=== PATIENT | male | born 1945 | race Caucasian/White ===

== ENCOUNTER 2017-04-10 16:54 | Inpatient (IN) | payer MEDICARE, OTHER ==
[2017-04-10 17:06] VITALS: BMI 27.1
[2017-04-10] MEDS ORDERED: Sodium Chloride 0.9% 1,000 ML IV STA (17:37)
[2017-04-10 17:54] LABS: BASO # 0.1 K/uL (0.0-0.2); BASO % 0.6 % (0.0-2.0); EOS # 0.4 K/uL (0.0-0.7); EOS % 3.1 % (0.0-4.0); HEMOGLOBIN 13.9 g/dL (12.0-18.0); LYMPH # 1.6 K/uL (1.0-4.3); LYMPH % 13.1 % (20.0-40.0); MEAN CELL VOLUME 90.8 fl (80.0-94.0); MEAN CORPUSCULAR HEMOGLOBIN 30.1 pg (27.0-31.0); MEAN CORPUSCULAR HGB CONC 33.1 g/dL (33.0-37.0); MEAN PLATELET VOLUME 5.9 fl (7.2-11.7); MONO # 0.8 K/uL (0.0-0.8); MONO % 6.3 % (0.0-10.0); NEUT # 9.6 K/uL (1.8-7.0); NEUT % 76.9 % (50.0-75.0); RBC 4.64 Mil/uL (4.40-5.90); RED CELL DISTRIBUTION WIDTH 13.1 % (11.5-14.5); WHITE BLOOD COUNT 12.5 K/uL (4.8-10.8)
[2017-04-10 18:22] LABS: CALCIUM 9.8 mg/dL (8.4-10.2); GFR AFRICAN-AMERICAN > 60; GFR NON-AFRICAN AMERICAN > 60
[2017-04-10 18:23] LABS: ALB/GLOB RATIO 1.3 (1.0-2.1); ALBUMIN 4.8 g/dL (3.5-5.0); ALT/SGPT 51 U/L (21-72); AST/SGOT 47 U/L (17-59); BLOOD UREA NITROGEN 13 mg/dl (9-20)
--- NOTE | 2017-04-10 18:46 | ED PDOC ---
HPI: CCC, URI, Sore Throat Time Seen by Provider: 04/10/17 17:27 Chief Complaint (Nursing): Chest Pain Chief Complaint (Provider): cough History Per: Patient History/Exam Limitations: no limitations Onset/Duration Of Symptoms: Days (x2) Current Symptoms Are (Timing): Still Present Additional Complaint(s): 71 year old male with medical history of hypertension and hypercholesterolemia, who presents to the emergency department with a complaint of flu-like symptoms including cough, congestion, runny nose, sore throat, generalized bodyaches, malaise and headache ongoing for 2 days. Denied any vomiting, diarrhea or shortness of breath. PMD: Giovanny Elam MD Past Medical History Reviewed: Historical Data, Nursing Documentation, Vital Signs Vital Signs: Last Vital Signs Temp 99.0 F 04/10/17 17:04 Pulse 85 04/10/17 17:04 Resp 16 04/10/17 17:04 BP 163/78 H 04/10/17 17:04 Pulse Ox 98 04/10/17 19:06 - Medical History PMH: Back Problems, HTN - Surgical History Surgical History: Appendectomy, Back Surgery, Tonsillectomy - Family History Family History: States: Unknown Family Hx - Social History Current smoker - smoking cessation education provided: No Alcohol: None Drugs: Denies - Home Medications Home Medications: Ambulatory Orders Medication Instructions Recorded oxyCODONE/Acetaminophen [Percocet 1 ea PO Q6H PRN #15 tab 03/16/16 5/325 mg Tab] Ibuprofen [Motrin Tab] 600 mg PO Q6 PRN #15 tab 04/10/17 Oseltamivir [Tamiflu] 75 mg PO BID #10 cap 04/10/17 - Allergies Allergies/Adverse Reactions: Allergies Allergy/AdvReac Type Severity Reaction Status Date / Time No Known Allergies Allergy Verified 04/10/17 17:23 Review of Systems ROS Statement: Except As Marked, All Systems Reviewed And Found Negative Constitutional: Positive for: Malaise, Other (generalized bodyaches) ENT: Positive for: Nose Discharge, Nose Congestion, Throat Pain Respiratory: Positive for: Cough. Negative for: Shortness of Breath Gastrointestinal: Negative for: Vomiting, Diarrhea Neurological: Positive for: Headache Physical Exam - Reviewed Nursing Documentation Reviewed: Yes Vital Signs Reviewed: Yes - Physical Exam Appears: Positive for: Non-toxic, Uncomfortable ENT: Positive for: Pharyngeal Erythema. Negative for: Normal ENT Inspection, Tonsillar Exudate Cardiovascular/Chest: Positive for: Regular Rate, Rhythm, Chest Non Tender Respiratory: Positive for: Decreased Breath Sounds (coarse). Negative for: Normal Breath Sounds, Respiratory Distress Gastrointestinal/Abdominal: Positive for: Normal Exam, Soft. Negative for: Tenderness Neurologic/Psych: Positive for: Alert, Oriented - Laboratory Results Result Diagrams: 04/10/17 17:35 04/10/17 17:35 - ECG O2 Sat by Pulse Oximetry: 98 (RA) Pulse Ox Interpretation: Normal Medical Decision Making Medical Decision Making: Initial Impression: Flu-like symptoms Initial Plan: * EKG * CMP * Troponin I * CBC * CXR * NS 1,000ml IV per 1,000mls/hr * Toradol 30mg IV * Influenza A B Time: 1727 --CXR: Interpreted by provider. Negative for active disease. Time: 1735 --Flu swab: positive for influenza A. Time: 1845 Tamiflu 75mg initiated. Pt remains unwell appearing, diminised BS b/l, dyspnea w ambulation. D/w Dr Elam, poss hx COPD, will keep med surg obs for flu pneumonitits Clinical Impression: Influenza Scribe Attestation: Documented by Abbey Small, acting as a scribe for Bunny Olivia III, DO. Provider Scribe Attestation: All medical record entries made by the Scribe were at my direction and personally dictated by me. I have reviewed the chart and agree that the record accurately reflects my personal performance of the history, physical exam, medical decision making, and the department course for this patient. I have also personally directed, reviewed, and agree with the discharge instructions and disposition. Disposition - Clinical Impression Clinical Impression: Influenza A, Influenza - Patient ED Disposition Is Patient to be Admitted: Yes Discussed With Dr.: Giovanny Elam Doctor Will See Patient In The: Hospital Counseled Patient/Family Regarding: Studies Performed, Diagnosis, Rx Given - Disposition Referrals: Giovanny Elam MD [Staff Provider] - Disposition Time: 18:45 Condition: STABLE Additional Instructions: Avoid close contact with others for 7 days. Take medication as directed. Return to ER for any worse or new symptoms. Prescriptions: Ibuprofen [Motrin Tab] 600 mg PO Q6 PRN #15 tab PRN Reason: Pain, Moderate (4-7) Oseltamivir [Tamiflu] 75 mg PO BID #10 cap Instructions: Influenza (ED) Forms: [facility] (Ecuadorean) - Pt Status Changed To: Hospital Disposition Of: Observation
[2017-04-10] MEDS ORDERED: Albuterol-Ipratrop 3 mg / 0.5 (3 ml) UD INH STA (19:02)
[2017-04-10] MEDS: oxyCODONE 10 mg Immediate Release Tab PO PRN (23:52)
[2017-04-11] MEDS ORDERED: Albuterol-Ipratrop 3 mg / 0.5 (3 ml) UD ONE ×3 (08:28→17:11)
[2017-04-11] MEDS: Albuterol-Ipratrop 3 mg / 0.5 (3 ml) UD INH SCH ×4 (08:28→20:12)
--- NOTE | 2017-04-11 10:02 | RAD ---
HISTORY: cough COMPARISON: No prior. TECHNIQUE: Chest PA and lateral FINDINGS: LUNGS: Prominence of the bilateral interstitial markings, likely chronic. Thickening of the minor fissure. No focal consolidation. PLEURA: No significant pleural effusion identified. No pneumothorax apparent. CARDIOVASCULAR: Atherosclerotic aortic calcifications. Cardiomediastinal silhouette within normal limits. OSSEOUS STRUCTURES: Anterior cervical fixation plate. Degenerative changes. VISUALIZED UPPER ABDOMEN: Normal. OTHER FINDINGS: None. IMPRESSION: No active disease.
[2017-04-11] MEDS: oxyCODONE 10 mg Immediate Release Tab PO PRN (10:39)
--- NOTE | 2017-04-11 11:24 | CARD ---
APPROVED REPORT EKG Measurement Heart [id number] <Conclusion> Sinus rhythm with 1st degree AV block Minimal voltage criteria for LVH, may be normal variant Borderline ECG
--- NOTE | 2017-04-11 11:52 | CP.PCM.HP ---
<Christianne James - Last Filed: 04/11/17 12:01> History of Present Illness - History of Present Illness History of Present Illness: 71 YO M w/ PMH of HTN, hypercholesterolemia presents for 2 days of cough, body aches, congested runny nose and sore throat . Has been having subjective fevers. Denies any nausea, vomiting or diarrhea. He is complaining of a headache 6/10. Denies any chest pain, palpitations, N/V. Present on Admission - Present on Admission Any Indicators Present on Admission: No Past Patient History - Infectious Disease Hx of Infectious Diseases: None - Past Social History Alcohol: None Drugs: Denies - CARDIAC Hx Hypertension: Yes - PULMONARY Hx Respiratory Disorders: No - MUSCULOSKELETAL/RHEUMATOLOGICAL Hx Musculoskeletal Disorders: Yes - PSYCHIATRIC Hx Psychophysiologic Disorder: No Hx Substance Use: No - SURGICAL HISTORY Hx Appendectomy: Yes Hx Tonsillectomy: Yes - ANESTHESIA Hx Anesthesia: Yes Hx Anesthesia Reactions: No Meds Home Medications: Home Medication List Medication Instructions Recorded Confirmed Type Ibuprofen [Motrin Tab] 600 mg PO Q6 PRN #15 tab 04/10/17 Rx Oseltamivir [Tamiflu] 75 mg PO BID #10 cap 04/10/17 Rx Allergies/Adverse Reactions: Allergies Allergy/AdvReac Type Severity Reaction Status Date / Time No Known Allergies Allergy Verified 04/10/17 17:23 Physical Exam - Constitutional Appears: No Acute Distress - Head Exam Head Exam: NORMAL INSPECTION - Respiratory Exam Respiratory Exam: Clear to Auscultation Bilateral, NORMAL BREATHING PATTERN. absent: Rhonchi, Wheezes - Cardiovascular Exam Cardiovascular Exam: REGULAR RHYTHM, +S1, +S2 - Extremities Exam Extremities exam: Positive for: normal inspection. Negative for: calf tenderness - Neurological Exam Neurological exam: Alert, CN II-XII Intact, Oriented x3, Reflexes Normal - Skin Skin Exam: Normal Color, Warm Results - Vital Signs Recent Vital Signs: Last Vital Signs Temp 98.4 F 04/11/17 11:14 Pulse 67 04/11/17 11:14 Resp 16 04/11/17 11:14 BP 116/69 04/11/17 11:14 Pulse Ox 100 04/11/17 11:14 - Labs Result Diagrams: 04/10/17 17:35 04/10/17 17:35 Labs: Laboratory Results - last 24 hr 04/10/17 04/10/17 04/10/17 17:35 17:35 17:35 WBC 12.5 H RBC 4.64 Hgb 13.9 Hct 42.1 MCV 90.8 MCH 30.1 MCHC 33.1 RDW 13.1 Plt Count 192 MPV 5.9 L Neut % (Auto) 76.9 H Lymph % (Auto) 13.1 L [place] % (Auto) 6.3 Eos % (Auto) 3.1 Baso % (Auto) 0.6 Neut # (Auto) 9.6 H Lymph # (Auto) 1.6 [place] # (Auto) 0.8 Eos # (Auto) 0.4 Baso # (Auto) 0.1 Sodium 142 Potassium 4.8 Chloride 103 Carbon Dioxide 28 Anion Gap 16 BUN 13 Creatinine 0.8 Est GFR ( Amer) > 60 Est GFR (Non-Af Amer) > 60 Random Glucose 115 H Calcium 9.8 Total Bilirubin 0.9 AST 47 ALT 51 Alkaline Phosphatase 68 Troponin I < 0.0120 Total Protein 8.3 H Albumin 4.8 Globulin 3.5 Albumin/Globulin Ratio 1.3 Influenza Typ A,B (EIA) Pos for influenza a H Assessment & Plan - Assessment and Plan (Free Text) Assessment: 1) Influenza positive - Continue with tamiflu 75 BID - Fever controll - Patient will be kept for observation and tentatively discharged tomorrow 2. Chronic low back pain - Pain controlled with medication 3. DVT prophylaxis - Lovenox <Giovanny Elam - Last Filed: 04/13/17 11:25> Results - Vital Signs Recent Vital Signs: Last Vital Signs Temp 98.3 F 04/13/17 08:01 Pulse 66 04/13/17 08:01 Resp 20 04/13/17 08:01 BP 163/90 H 04/13/17 08:01 Pulse Ox 95 04/13/17 08:01 - Labs Result Diagrams: 04/10/17 17:35 04/10/17 17:35 Assessment & Plan - Assessment and Plan (Free Text) Plan: I was present during the evaluation and discussed with Dr James re plans of care and tx. Giovanny Elam M.D.
[2017-04-12] MEDS: oxyCODONE 10 mg Immediate Release Tab PO PRN ×2 (07:50→20:07)
[2017-04-12] MEDS: Albuterol-Ipratrop 3 mg / 0.5 (3 ml) UD INH SCH ×4 (08:23→19:01)
[2017-04-12 08:38] VITALS: RESP 20
[2017-04-12] MEDS: Enoxaparin 40 mg Syringe SC SCH (10:39)
[2017-04-12] MEDS: guaiFENesin DM 200 mg-20 mg/10 ml UD PO PRN ×2 (10:39→15:29)
[2017-04-13] MEDS: guaiFENesin DM 200 mg-20 mg/10 ml UD PO PRN ×2 (00:03→08:36)
[2017-04-13 08:01] VITALS: BP 163/90; PULSE 66; TEMP 98.3; O2SAT 95
[2017-04-13] MEDS: Enoxaparin 40 mg Syringe SC SCH (08:36)
[2017-04-13] MEDS: Albuterol-Ipratrop 3 mg / 0.5 (3 ml) UD INH SCH ×2 (08:56→11:27)
[2017-04-13] MEDS: oxyCODONE 10 mg Immediate Release Tab PO PRN (10:23)
--- NOTE | 2017-04-13 11:27 | CP.PCM.PN ---
Subjective - Date & Time of Evaluation Date of Evaluation: 04/12/17 Time of Evaluation: 10:30 - Subjective Subjective: Patient feels veryweak Has hoarseness of voice Has low grade fever Still with a lot of joint pains and muscle pains. On his 2nd day of Tamiflu. Objective - Vital Signs/Intake and Output Vital Signs (last 24 hours): Temp Pulse Resp BP Pulse Ox 98.3 F 66 20 163/90 H 95 04/13/17 08:01 04/13/17 08:01 04/13/17 08:01 04/13/17 08:01 04/13/17 08:01 - Medications Medications: Current Medications Albuterol/Ipratropium (Duoneb 3 Mg/0.5 Mg (3 Ml) Ud) 3 ml INH RQID [facility] Last Admin: 04/13/17 08:56 Dose: 3 ml Enoxaparin Sodium (Lovenox) 40 mg SC DAILY [facility] PRN Reason: Protocol Last Admin: 04/13/17 08:36 Dose: 40 mg Guaifenesin/Dextromethorphan (Robitussin Dm) 10 ml PO Q6 PRN PRN Reason: Cough Last Admin: 04/13/17 08:36 Dose: 10 ml Ibuprofen (Motrin Tab) 600 mg PO Q8 PRN PRN Reason: Pain (1-5), fever Last Admin: 04/12/17 13:18 Dose: 600 mg Ibuprofen (Motrin Tab) 800 mg PO Q8 PRN PRN Reason: Pain, moderate (4-7) Last Admin: 04/13/17 06:37 Dose: 800 mg Oseltamivir Phosphate (Tamiflu Cap) 75 mg PO BID [facility] PRN Reason: Protocol Last Admin: 04/13/17 08:36 Dose: 75 mg Oxycodone HCl (Oxycodone Immediate Release Tab) 10 mg PO Q6 PRN PRN Reason: Pain, severe (8-10) Last Admin: 04/13/17 10:23 Dose: 10 mg - Labs Labs: 04/10/17 17:35 04/10/17 17:35 - Head Exam Head Exam: NORMAL INSPECTION - Eye Exam Eye Exam: Normal appearance - ENT Exam ENT Exam: Mucous Membranes Moist - Respiratory Exam Respiratory Exam: Clear to Ausculation Bilateral - Cardiovascular Exam Cardiovascular Exam: REGULAR RHYTHM - GI/Abdominal Exam GI & Abdominal Exam: Normal Bowel Sounds - Neurological Exam Neurological Exam: Awake, Oriented x3 - Psychiatric Exam Psychiatric exam: Normal Mood Assessment and Plan (1) Influenza A Status: Acute (2) Chronic back pain Status: Acute - Assessment and Plan (Free Text) Plan: Cont meds Cont Tamiflu high dose Ibuprofen Increase fluids IV fluids. isolation.
--- NOTE | 2017-04-13 11:31 | CP.PCM.DIS ---
Provider - Provider Date of Admission: 04/12/17 18:58 Attending physician: Giovanny Elam MD Time Spent in preparation of Discharge (in minutes): 30 Diagnosis - Discharge Diagnosis (1) Influenza A Status: Acute (2) Chronic back pain Status: Acute Hospital Course - Lab Results Lab Results: Most Recent Lab Values WBC 12.5 K/uL (4.8-10.8) H 04/10/17 17:35 RBC 4.64 Mil/uL (4.40-5.90) 04/10/17 17:35 Hgb 13.9 g/dL (12.0-18.0) 04/10/17 17:35 Hct 42.1 % (35.0-51.0) 04/10/17 17:35 MCV 90.8 fl (80.0-94.0) 04/10/17 17:35 MCH 30.1 pg (27.0-31.0) 04/10/17 17:35 MCHC 33.1 g/dL (33.0-37.0) 04/10/17 17:35 RDW 13.1 % (11.5-14.5) 04/10/17 17:35 Plt Count 192 K/uL (130-400) 04/10/17 17:35 MPV 5.9 fl (7.2-11.7) L 04/10/17 17:35 Neut % (Auto) 76.9 % (50.0-75.0) H 04/10/17 17:35 Lymph % (Auto) 13.1 % (20.0-40.0) L 04/10/17 17:35 [place] % (Auto) 6.3 % (0.0-10.0) 04/10/17 17:35 Eos % (Auto) 3.1 % (0.0-4.0) 04/10/17 17:35 Baso % (Auto) 0.6 % (0.0-2.0) 04/10/17 17:35 Neut # (Auto) 9.6 K/uL (1.8-7.0) H 04/10/17 17:35 Lymph # (Auto) 1.6 K/uL (1.0-4.3) 04/10/17 17:35 [place] # (Auto) 0.8 K/uL (0.0-0.8) 04/10/17 17:35 Eos # (Auto) 0.4 K/uL (0.0-0.7) 04/10/17 17:35 Baso # (Auto) 0.1 K/uL (0.0-0.2) 04/10/17 17:35 Sodium 142 mmol/l (132-148) 04/10/17 17:35 Potassium 4.8 MMOL/L (3.6-5.0) 04/10/17 17:35 Chloride 103 mmol/L (98-107) 04/10/17 17:35 Carbon Dioxide 28 mmol/L (22-30) 04/10/17 17:35 Anion Gap 16 (10-20) 04/10/17 17:35 BUN 13 mg/dl (9-20) 04/10/17 17:35 Creatinine 0.8 mg/dl (0.8-1.5) 04/10/17 17:35 Est GFR ( Amer) > 60 04/10/17 17:35 Est GFR (Non-Af Amer) > 60 04/10/17 17:35 Random Glucose 115 mg/dL (75-110) H 04/10/17 17:35 Calcium 9.8 mg/dL (8.4-10.2) 04/10/17 17:35 Total Bilirubin 0.9 mg/dl (0.2-1.3) 04/10/17 17:35 AST 47 U/L (17-59) 04/10/17 17:35 ALT 51 U/L (21-72) 04/10/17 17:35 Alkaline Phosphatase 68 U/L (38-126) 04/10/17 17:35 Troponin I < 0.0120 ng/mL (0.00-0.120) 04/10/17 17:35 Total Protein 8.3 G/DL (6.3-8.2) H 04/10/17 17:35 Albumin 4.8 g/dL (3.5-5.0) 04/10/17 17:35 Globulin 3.5 gm/dL (2.2-3.9) 04/10/17 17:35 Albumin/Globulin Ratio 1.3 (1.0-2.1) 04/10/17 17:35 Influenza Typ A,B (EIA) Pos for influenza a (NEGATIVE) H 04/10/17 17:35 - Hospital Course Hospital Course: This is a 71 y/o male admitted for sx of flu. Noted positive for Infl A. He was started on IV fluids, NSAID's and Tamiflu and was placed on isolation. IV fluids were started and patient did well. He still has sx of body weakness and muscle pains but was sent home in stable condition and advised to stayhome to recuperate. Rx for Tamiflu Ibuprofen and enalapril as given to patient as his BP was noted to be elevatewd on discharge. Discharge Exam - Head Exam Head Exam: NORMAL INSPECTION - Eye Exam Eye Exam: Normal appearance - Respiratory Exam Respiratory Exam: NORMAL BREATHING PATTERN - Cardiovascular Exam Cardiovascular Exam: REGULAR RHYTHM - GI/Abdominal Exam GI & Abdominal Exam: Normal Bowel Sounds - Neurological Exam Neurological exam: CN II-XII Intact, Oriented x3 - Psychiatric Exam Psychiatric exam: Normal Mood Discharge Plan - Discharge Medications Prescriptions: Ibuprofen [Motrin Tab] 600 mg PO Q6 PRN #15 tab PRN Reason: Pain, Moderate (4-7) Oseltamivir [Tamiflu] 75 mg PO BID #10 cap - Follow Up Plan Condition: STABLE Disposition: HOME/ ROUTINE Instructions: Influenza (ED) Additional Instructions: Avoid close contact with others for 7 days. Take medication as directed. Return to ER for any worse or new symptoms. advised follow up in office in 1 week Friday next week. Referrals: Giovanny Elam MD [Family Provider] -
== END 2017-04-13 12:20 | disposition home or self-care (01) | DRG 195 ==
LOC: H.ER 16:54 → H.ERHOLD 19:05 → H.MEDSURG1 04-11 17:42 → OBSVTOIN 04-12 18:58
PROVIDERS: ADMIT Family Medicine; ATTEND Family Medicine
PROC: 3E0F7GC Introduction of Other Therapeutic Substance into Respiratory Tract, Via Natural or Artificial Opening (ICD-10-PCS; principal; 2017-04-11)
DX: J10.1 Influenza due to other identified influenza virus with other respiratory manifestations (principal); E78.00 Pure hypercholesterolemia, unspecified; M54.5 Low back pain; Z78.9 Other specified health status; Z90.49 Acquired absence of other specified parts of digestive tract; G89.29 Other chronic pain; I10 Essential (primary) hypertension